=== PATIENT | female | born 1985 | race Two or more races ===

== ENCOUNTER 2021-05-30 02:40 | Emergency (ER) | payer SELFPAY ==
[~2021-05-30] VITALS: Ht 175.3 cm; Wt 127.0 kg
[2021-05-30] MEDS ORDERED: HYDROmorphone 2 MG/ML VIAL IVP ONE (04:00)
[2021-05-30] MEDS ORDERED: IV NORMAL SALINE 1000ML BAG 1,000 ML IV ONE (04:00)
[2021-05-30 04:16] LABS: BILIRUBIN,URINE NEGATIVE (NEG); CLARITY,URINE CLEAR; COLOR,URINE YELLOW; NITRITE,URINE NEGATIVE (NEG); PH,URINE 6.5 (<5.0-8.0); PROTEIN,URINE NEGATIVE (NEG-TRACE); UROBILINOGEN,URINE 0.2 mg/dL (0.2 mg/dL)
[2021-05-30 04:17] LABS: BASO # 0.1 x10^3/uL (0.0-0.2); BASO % 1 % (0-3); EOS % 0 % (0-3); HEMATOCRIT 36.6 % (36.0-47.0); HEMOGLOBIN 12.4 g/dL (12.0-15.5); LYMPH # 3.2 x10^3/uL (1.0-4.8); LYMPH % 19 % (24-48); MEAN CORPUSCULAR HEMOGLOBIN 27 pg (25-35); MEAN CORPUSCULAR HGB CONC 34 g/dL (31-37); MEAN CORPUSCULAR VOLUME 79 fL (79-100); MONO # 0.8 x10^3/uL (0.0-1.1); MONO % 5 % (0-9); NEUT # 12.6 x10^3/uL (1.8-7.7); NEUT % 75 % (31-73); PLATELET COUNT 404 x10^3/uL (140-400); RED BLOOD COUNT 4.65 x10^6/uL (3.50-5.40); WHITE BLOOD COUNT 16.8 x10^3/uL (4.0-11.0)
[2021-05-30 04:24] LABS: BACTERIA,URINE 0 /HPF (0-FEW); RBC,URINE 0 /HPF (0-2); WBC,URINE RARE /HPF (0-4)
[2021-05-30 04:25] LABS: CALCIUM 9.5 mg/dL (8.5-10.1); GFR 62.4; POTASSIUM 3.4 mmol/L (3.5-5.1)
[2021-05-30 04:31] LABS: ALBUMIN 3.6 g/dL (3.4-5.0); ALBUMIN/GLOBULIN RATIO 0.8 (1.0-1.7); TOTAL BILIRUBIN 0.5 mg/dL (0.2-1.0); TOTAL PROTEIN 8.2 g/dL (6.4-8.2)
--- NOTE | 2021-05-30 04:35 | PHYS DOC ---
Past Medical History Past Surgical History: No Surgical History (JENIFER COOLEY DO) Smoking Status: Never Smoker Alcohol Use: Occasionally (JENIFER COOLEY DO) General Adult EDM: Chief Complaint: ABDOMINAL PAIN HPI: HPI: 36-year-old female past medical history of [id number] diabetes presents the ED with , (patient consents to his/her/their knowledge and involvement in pts' medical care), complaints of left inguinal/pelvic pain that is sharp in nature stating " it is radiating right into my butt hole," since Friday. Patient reports no menses for 6 months and was given 7 days of Provera by her [facility] in [place]. This caused a heavy menses that stopped 1 week ago. Left inguinal pain started 4 days after this. Patient was seen at [facility] urgent care on Friday where she had a CT and an ultrasound "for torsion" and was diagnosed with uterine fibroids. Patient states "those medications they gave me aren't for pain," and has prescription bottles of Zofran and Bentyl at bedside. Patient is convinced she is constipated and states she has not had a bowel movement since Friday. Reports she normally has balance 2-3 times a day and has not been diagnosed with any GI disease. Last menstrual period was 05/15. (JENIFER COOLEY DO) Review of Systems: Review of Systems: Constitutional: Denies fever or chills. [] Eyes: Denies change in visual acuity. [] HENT: Denies nasal congestion or sore throat. [] Respiratory: Denies cough or shortness of breath. [] Cardiovascular: Denies chest pain or edema. [] GI: Denies nausea, vomiting, bloody stools or diarrhea. [] : Denies dysuria, hematuria, vaginal pain or abnormal vaginal discharge Musculoskeletal: Denies back pain or joint pain. [] Integument: Denies rash or diaphoresis Neurologic: Denies headache, focal weakness or sensory changes. [] Endocrine: Denies polyuria or polydipsia. [] Lymphatic: Denies swollen glands. [] Psychiatric: Denies depression or anxiety. [] (JENIFER COOLEY DO) Heart Score: C/O Chest Pain: No Risk Factors: Risk Factors: DM, Current or recent (<one month) smoker, HTN, HLP, family history of CAD, obesity. Risk Scores: Score 0 - 3: 2.5% MACE over next 6 weeks - Discharge Home Score 4 - 6: 20.3% MACE over next 6 weeks - Admit for Clinical Observation Score 7 - 10: 72.7% MACE over next 6 weeks - Early Invasive Strategies (JENIFER COOLEY DO) C/O Chest Pain: N/A (CARYN CHAVEZ DO) Current Medications: Current Medications Medications (Trade) Dose Ordered Sig/Savana Start Time Stop Time Status Last Admin Dose Admin Hydromorphone HCl (Dilaudid) 1 mg 1X ONCE 05/30/21 04:00 05/30/21 04:01 DC 05/30/21 04:14 1 MG Sodium Chloride 1,000 ml @ 1,000 mls/hr 1X ONCE 05/30/21 04:00 05/30/21 04:59 05/30/21 04:12 1,000 MLS/HR (JENIFER COOLEY DO) Allergies: Allergies: Allergies Coded Allergies Type Severity Reaction Last Updated Verified No Known Drug Allergies 05/30/21 No (JENIFER COOLEY DO) Physical Exam: PE: Constitutional: Crying, writhing in stretcher, nontoxic appearance HENT: Normocephalic, atraumatic, Eyes: EOMI, conjunctiva normal, no discharge. Neck: Normal range of motion, supple, Cardiovascular: S1/2 present, regular rhythm Lungs & Thorax: Speaking in full sentences, bilateral equal chest rise, no tachypnea or increased work of breathing Abdomen: soft, no tenderness, left lower pelvic pain and ttp Skin: Warm, dry, no erythema, no rash. [] Back: No tenderness, no CVA tenderness. [] Extremities: No tenderness, no cyanosis, Neurologic: Alert and oriented X 3, normal motor function, normal sensory function, no focal deficits noted. [] Psychologic: Affect normal, judgement normal, mood normal. [] (JENIFER COOLEY DO) Current Patient Data: Labs: Laboratory Tests Test 05/30/21 02:46 05/30/21 02:50 05/30/21 04:08 Urine Collection Type Void Urine Color Yellow Urine Clarity Clear Urine pH 6.5 (<5.0-8.0) Urine Specific [place] 1.020 (1.000-1.030) Urine Protein Negative mg/dL (NEG-TRACE) Urine Glucose (UA) Negative mg/dL (NEG) Urine Ketones (Stick) Negative mg/dL (NEG) Urine Blood Negative (NEG) Urine Nitrite Negative (NEG) Urine Bilirubin Negative (NEG) Urine Urobilinogen Dipstick 0.2 mg/dL (0.2 mg/dL) Urine Leukocyte Esterase Negative (NEG) Urine RBC 0 /HPF (0-2) Urine WBC Rare /HPF (0-4) Urine Squamous Epithelial Cells Mod /LPF Urine Bacteria 0 /HPF (0-FEW) Urine Mucus Slight /LPF POC Urine HCG, Qualitative Hcg negative (Negative) White Blood Count 16.8 x10^3/uL (4.0-11.0) H Red Blood Count 4.65 x10^6/uL (3.50-5.40) Hemoglobin 12.4 g/dL (12.0-15.5) Hematocrit 36.6 % (36.0-47.0) Mean Corpuscular Volume 79 fL (79-100) Mean Corpuscular Hemoglobin 27 pg (25-35) Mean Corpuscular Hemoglobin Concent 34 g/dL (31-37) Red Cell Distribution Width 16.0 % (11.5-14.5) H Platelet Count 404 x10^3/uL (140-400) H Neutrophils (%) (Auto) 75 % (31-73) H Lymphocytes (%) (Auto) 19 % (24-48) L Monocytes (%) (Auto) 5 % (0-9) Eosinophils (%) (Auto) 0 % (0-3) Basophils (%) (Auto) 1 % (0-3) Neutrophils # (Auto) 12.6 x10^3/uL (1.8-7.7) H Lymphocytes # (Auto) 3.2 x10^3/uL (1.0-4.8) Monocytes # (Auto) 0.8 x10^3/uL (0.0-1.1) Eosinophils # (Auto) 0.0 x10^3/uL (0.0-0.7) Basophils # (Auto) 0.1 x10^3/uL (0.0-0.2) Platelet Estimate Pending Sodium Level 139 mmol/L (136-145) Potassium Level 3.4 mmol/L (3.5-5.1) L Chloride Level 102 mmol/L (98-107) Carbon Dioxide Level 24 mmol/L (21-32) Anion Gap 13 (6-14) Blood Urea Nitrogen 13 mg/dL (7-20) Creatinine 1.0 mg/dL (0.6-1.0) Estimated GFR (Cockcroft-Gault) 62.4 BUN/Creatinine Ratio 13 (6-20) Glucose Level 146 mg/dL (70-99) H Calcium Level 9.5 mg/dL (8.5-10.1) Total Bilirubin 0.5 mg/dL (0.2-1.0) Aspartate Amino Transferase (AST) 13 U/L (15-37) L Alanine Aminotransferase (ALT) 20 U/L (14-59) Alkaline Phosphatase 121 U/L (46-116) H Total Protein 8.2 g/dL (6.4-8.2) Albumin 3.6 g/dL (3.4-5.0) Albumin/Globulin Ratio 0.8 (1.0-1.7) L Laboratory Tests 05/30/21 04:08 Laboratory Tests 05/30/21 04:08 Vital Signs: Vital Signs Date Time Temp Pulse Resp B/P (MAP) Pulse Ox O2 Delivery O2 Flow Rate FiO2 05/30/21 04:14 22 100 Room Air 05/30/21 03:00 98.2 87 146/76 98.2 ([facility]) Labs: Laboratory Tests Test 05/30/21 02:46 05/30/21 02:50 05/30/21 04:08 Urine Collection Type Void Urine Color Yellow Urine Clarity Clear Urine pH 6.5 Urine Specific [place] 1.020 Urine Protein Negative mg/dL Urine Glucose (UA) Negative mg/dL Urine Ketones (Stick) Negative mg/dL Urine Blood Negative Urine Nitrite Negative Urine Bilirubin Negative Urine Urobilinogen Dipstick 0.2 mg/dL Urine Leukocyte Esterase Negative Urine RBC 0 /HPF Urine WBC Rare /HPF Urine Squamous Epithelial Cells Mod /LPF Urine Bacteria 0 /HPF Urine Mucus Slight /LPF Bedside Urine HCG, Qualitative Hcg negative White Blood Count 16.8 x10^3/uL Red Blood Count 4.65 x10^6/uL Hemoglobin 12.4 g/dL Hematocrit 36.6 % Mean Corpuscular Volume 79 fL Mean Corpuscular Hemoglobin 27 pg Mean Corpuscular Hemoglobin Concent 34 g/dL Red Cell Distribution Width 16.0 % Platelet Count 404 x10^3/uL Neutrophils (%) (Auto) 75 % Lymphocytes (%) (Auto) 19 % Monocytes (%) (Auto) 5 % Eosinophils (%) (Auto) 0 % Basophils (%) (Auto) 1 % Neutrophils # (Auto) 12.6 x10^3/uL Lymphocytes # (Auto) 3.2 x10^3/uL Monocytes # (Auto) 0.8 x10^3/uL Eosinophils # (Auto) 0.0 x10^3/uL Basophils # (Auto) 0.1 x10^3/uL Segmented Neutrophils % 72 % Lymphocytes % 24 % Monocytes % 4 % Platelet Estimate Adequate Sodium Level 139 mmol/L Potassium Level 3.4 mmol/L Chloride Level 102 mmol/L Carbon Dioxide Level 24 mmol/L Anion Gap 13 Blood Urea Nitrogen 13 mg/dL Creatinine 1.0 mg/dL Estimated GFR (Cockcroft-Gault) 62.4 BUN/Creatinine Ratio 13 Glucose Level 146 mg/dL Lactic Acid Level 2.1 mmol/L Calcium Level 9.5 mg/dL Total Bilirubin 0.5 mg/dL Aspartate Amino Transf (AST/SGOT) 13 U/L Alanine Aminotransferase (ALT/SGPT) 20 U/L Alkaline Phosphatase 121 U/L Total Protein 8.2 g/dL Albumin 3.6 g/dL Albumin/Globulin Ratio 0.8 Current Medications Medications (Trade) Dose Ordered Sig/Savana Route PRN Reason Start Time Stop Time Status Last Admin Dose Admin Hydromorphone HCl (Dilaudid) 1 mg 1X ONCE IVP 05/30/21 04:00 05/30/21 04:01 DC 05/30/21 04:14 Sodium Chloride 1,000 ml @ 1,000 mls/hr 1X ONCE IV 05/30/21 04:00 05/30/21 04:59 DC 05/30/21 04:12 Iohexol (Omnipaque 300 Mg/ml) 75 ml 1X ONCE IV 05/30/21 04:45 05/30/21 04:46 DC 05/30/21 05:30 Info (CONTRAST GIVEN -- Rx MONITORING) 1 each PRN DAILY PRN MC SEE COMMENTS 05/30/21 04:45 06/01/21 04:44 Ketorolac Tromethamine (Toradol 30mg Vial) 30 mg 1X ONCE IVP 05/30/21 07:00 05/30/21 07:01 DC 05/30/21 07:05 (CARYN CHAVEZ DO) EKG: EKG: [] (JENIFER COOLEY DO) Radiology/Procedures: Radiology/Procedures: [] (JENIFER COOLEY DO) Radiology/Procedures: [facility] [address] [place] [address] IMAGING REPORT Signed PATIENT: HECTOR BAUGH ACCOUNT: [id number] : 1985 LOCATION: ER AGE: 36 SEX: F EXAM STATUS: REG ER ORD. PHYSICIAN: JENIFER COOLEY DO REASON: left pelvic pain;OMNI 300, 75ML PROCEDURE: CT ABD PELV W/ IV CONTRST ONLY CT abdomen and pelvis with contrast: Reason for examination: Left-sided pelvic pain. Helical images were obtained through the abdomen pelvis with intravenous administration of 75 cc Omnipaque 300. Reconstruction was performed in sagittal and coronal planes. Exposure: One or more of the following individualized dose reduction techniques were utilized for this examination: 1. Automated exposure control 2. Adjustment of the mA and/or kV according to patient size 3. Use of iterative re construction technique. The lung bases are clear. The heart size is normal with no pericardial effusion. No abnormality seen at the liver, spleen, adrenal glands or pancreas. The gallbladder is surgically absent. The abdominal aorta and inferior vena cava show no acute abnormalities. No abnormality seen at the appendix. The colon shows no diverticulosis, diverticulitis or evidence of colitis. The small intestinal tract shows no abnormal dilatation, wall thickening or obstruction. No abnormality seen at the stomach or duodenum. The kidneys show a small 1 cm cyst at the midpole of the left kidney. No renal calculi, hydronephrosis or obstructive uropathy is evident. The bladder is not distended. Uterus shows a hypodense lesion posteriorly in the fundus which probably represents a fibroid measuring approximately 4.4 cm in size. There appear to be nabothian cysts in the cervix. No free fluid or free air seen in the abdomen or pelvis. No acute bony abnormalities are seen. IMPRESSION: 1.0 cm cyst at the midpole of the left kidney. Nabothian cysts in the cervix. 4.4 cm hypodense mass in the uterine fundus posteriorly probably representing a fibroid. Electronically signed by: Emy Cm MD (05/30/2021 6:15 AM) [place] DICTATED and SIGNED BY: EMY CM MD DATE: 05/30/21 [id number] [facility] [address] [place] [address] IMAGING REPORT Signed PATIENT: HECTOR BAUGH ACCOUNT: [id number] : 1985 LOCATION: ER AGE: 36 SEX: F EXAM STATUS: REG ER ORD. PHYSICIAN: JENIFER COOLEY DO REASON: left pelvic pain, r/o torsion PROCEDURE: TRANSVAGINAL Pelvic ultrasound, transabdominal and transvaginal: Reason for examination: Left pelvic pain and constipation. Transabdominal and transvaginal ultrasound examination of the pelvis was perfor med. Uterus measures 9.2 x 6.3 x 6.3 cm greatest dimension and shows no focal mass. Endometrium is not abnormally thickened at 6.5 mm. Nabothian cysts are seen in the cervix. There is a 5.5 x 3.7 x 3.1 cm mass in the uterus probably representing a fibroid. Left ovary measures 3.1 x 2.1 x 2.1 cm in greatest dimension and shows normal vascular flow and no mass. The right ovary was not visualized transvaginally. The right ovary transabdominally appears to measure 2.7 x 2.0 x 1.9 cm in size and contains a 1.6 cm follicle. IMPRESSION: 5.5 x 3.7 x 3.1 cm mass in the uterus which probably represents a fibroid. Nabothian cysts. 1.6 cm follicle in the right ovary. Electronically signed by: Emy Cm MD (05/30/2021 5:47 AM) [facility] DICTATED and SIGNED BY: EYM CM MD DATE: 05/30/21 [id number] (CARYN CHAVEZ DO) Course & Med Decision Making: Course & Med Decision Making Pertinent Labs and Imaging studies reviewed. (See chart for details) Due to shift change patient was pending radiologic results. Patient's labs and u/a unremarkable. Patient was signed out to oncoming physician Dr. Chavez for further medical evaluation and disposition. (JENIFER COOLEY DO) Course & Med Decision Making Patient is a 36-year-old female who present to ER due to lower abdominal pain, CT scan of abdomen pelvis with ultrasound shows a fibroid, no other acute problem. Patient will be discharged home with pain medication. 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 Patient is currently on control medication. (CARYN CHAVEZ DO) Dragon Disclaimer: Dragon Disclaimer: This electronic medical record was generated, in whole or in part, using a voice recognition dictation system. (JENIFER COOLEY DO) Departure Departure Impression: Primary Impression: Lower abdominal pain Additional Impression: Fibroid Disposition: HOME / SELF CARE / HOMELESS Condition: STABLE Referrals: NO PCP (PCP) Patient Instructions: Abdominal Pain, Fibroids, [id number] Additional Instructions: Thank you for visiting our Emergency Department. We appreciate you trusting us with your care. If any additional problems come up don't hesitate to return to visit us. Please follow up with your primary care provider so they can plan additional care if needed and know about the problem that you had. If symptoms worsen come back to the Emergency Department. Any concerning symptoms that start such as chest pain, shortness of air, weakness or numbness on one side of the body, running high fevers or any other concerning symptoms return to the ER. Scripts Ibuprofen (IBUPROFEN) 800 Mg Tablet 800 MG PO PRN Q8HRS PRN for PAIN, #30 TAB Prov: CARYN CHAVEZ DO 05/30/21 Tramadol Hcl (TRAMADOL HCL) 50 Mg Tablet 50 MG PO Q6HRS PRN for PAIN, #20 TAB Prov: CARYN CHAVEZ DO 05/30/21 JENIFER COOLEY DO May 30, 2021 04:35 CARYN CHAVEZ DO May 30, 2021 07:46
[2021-05-30 04:41] LABS: % LYMPHS 24 % (24-48); % MONOS 4 % (0-10); % SEGS 72 % (35-66); PLT ESTIMATE ADEQUATE (ADEQUATE)
[2021-05-30] MEDS ORDERED: IOHEXOL 300 MG/ML 100ML VIAL. IV ONE (04:45)
[2021-05-30] MEDS ORDERED: CONTRAST GIVEN. MC PRN (04:45)
--- NOTE | 2021-05-30 05:50 | RAD ---
Pelvic ultrasound, transabdominal and transvaginal: Reason for examination: Left pelvic pain and constipation. Transabdominal and transvaginal ultrasound examination of the pelvis was performed. Uterus measures 9.2 x 6.3 x 6.3 cm greatest dimension and shows no focal mass. Endometrium is not abn ormally thickened at 6.5 mm. Nabothian cysts are seen in the cervix. There is a 5.5 x 3.7 x 3.1 cm ma ss in the uterus probably representing a fibroid. Left ovary measures 3.1 x 2.1 x 2.1 cm in greatest dimension and shows normal vascular flow and no ma ss. The right ovary was not visualized transvaginally. The right ovary transabdominally appears to measur e 2.7 x 2.0 x 1.9 cm in size and contains a 1.6 cm follicle. IMPRESSION: 5.5 x 3.7 x 3.1 cm mass in the uterus which probably represents a fibroid. Nabothian cysts. 1.6 cm follicle in the right ovary. Electronically signed by: Tosin Mccoy MD (05/30/2021 5:47 AM) [facility]
--- NOTE | 2021-05-30 06:18 | RAD ---
CT abdomen and pelvis with contrast: Reason for examination: Left-sided pelvic pain. Helical images were obtained through the abdomen pelvis with intravenous administration of 75 cc Omni paque 300. Reconstruction was performed in sagittal and coronal planes. Exposure: One or more of the following individualized dose reduction techniques were utilized for thi s examination: 1. Automated exposure control 2. Adjustment of the mA and/or kV according to patient size 3. Use of iterative reconstruction technique. The lung bases are clear. The heart size is normal with no pericardial effusion. No abnormality seen at the liver, spleen, adrenal glands or pancreas. The gallbladder is surgically a bsent. The abdominal aorta and inferior vena cava show no acute abnormalities. No abnormality seen at the appendix. The colon shows no diverticulosis, diverticulitis or evidence of colitis. The small in testinal tract shows no abnormal dilatation, wall thickening or obstruction. No abnormality seen at t he stomach or duodenum. The kidneys show a small 1 cm cyst at the midpole of the left kidney. No yocasta l calculi, hydronephrosis or obstructive uropathy is evident. The bladder is not distended. Uterus shows a hypodense lesion posteriorly in the fundus which probabl y represents a fibroid measuring approximately 4.4 cm in size. There appear to be nabothian cysts in the cervix. No free fluid or free air seen in the abdomen or pelvis. No acute bony abnormalities are seen. IMPRESSION: 1.0 cm cyst at the midpole of the left kidney. Nabothian cysts in the cervix. 4.4 cm hypodense mass in the uterine fundus posteriorly probably representing a fibroid. Electronically signed by: Tosin Mccoy MD (05/30/2021 6:15 AM) [facility]
[2021-05-30] MEDS ORDERED: KETOROLAC 30 MG/ML VIAL. IVP ONE (07:00)
--- NOTE | 2021-05-30 07:28 | RAD ---
Acute abdominal series with PA chest: Reason for examination: Constipation. The heart size is normal. Mediastinum is unremarkable. Lung abreu are clear. No acute bony abnormali ties are seen in the thorax. In the abdomen, there is no organomegaly. Psoas muscles are symmetric. Bowel gas pattern is nonspecif ic and nonobstructive. No abnormal calcifications are seen. There are surgical clips are previous cho lecystectomy. No acute bony abnormalities are seen. IMPRESSION: No acute cardiopulmonary disease. Nonspecific nonobstructive bowel gas pattern. Electronically signed by: Tosin Mccoy MD (05/30/2021 7:26 AM) [facility]
[2021-05-30 07:40] VITALS: BP 150/67
[2021-05-30] MEDS ORDERED: IBUP-1060 PO (07:54)
[2021-05-30] MEDS ORDERED: TRAM50TA PO (07:54)
== END 2021-05-30 08:13 | disposition home or self-care (01) ==
LOC: ER 02:40
DX: D25.9 Leiomyoma of uterus, unspecified (principal)
CPT/HCPCS: 36415; 74022; 74177; 76830; 80053; 81001; 81025; 83605; 85007; 85025; 96361; 96374; 96375; 99285; J1170; J1885; J7030; Q9967

== ENCOUNTER 2021-11-04 05:29 | Emergency (ER) | payer SELFPAY ==
[~2021-11-04] VITALS: Ht 176.5 cm; Wt 118.2 kg
[~2021-11-04 05:29] MED LIST: IBUP-1060 PO; TRAM50TA PO
--- NOTE | 2021-11-04 06:09 | PHYS DOC ---
Past Medical History Past Surgical History: No Surgical History Smoking Status: Never Smoker Alcohol Use: Occasionally Adult General Chief Complaint Chief Complaint: ABDOMINAL PAIN HPI HPI Patient is a 36 year old female presenting to the emergency department for evaluation of multiple complaints including abdominal pain dysuria vaginal bl eeding vaginal discharge diarrhea that all started yesterday. She says that the abdominal pain is diffuse bilateral lower quadrant crampy and radiates towards her left flank. She denies fevers chills nausea or vomiting says she has had watery stool since yesterday but had no blood. Patient says that she has painful urination and she is currently on her menstrual cycle and she is having vaginal bleeding and vaginal discharge. She says she took ibuprofen for the pain with no relief. She reports getting a colonoscopy in May when she had severe pain like this and was diagnosed with diverticulitis. She denies prior abdominal surgeries. She appears uncomfortable but is nontoxic. Review of Systems Review of Systems Constitutional: Denies fever or chills [] Eyes: Denies change in visual acuity, redness, or eye pain [] HENT: Denies nasal congestion or sore throat [] Respiratory: Denies cough or shortness of breath [] Cardiovascular: No additional information not addressed in HPI [] GI: + abdominal pain. No nausea, vomiting, bloody stools. + diarrhea [] : Denies dysuria or hematuria [] Musculoskeletal: + back pain. No joint pain [] Integument: Denies rash or skin lesions [] Neurologic: Denies headache, focal weakness or sensory changes [] Endocrine: Denies polyuria or polydipsia [] All other systems were reviewed and found to be within normal limits, except as documented in this note. Current Medications Current Medications Current Medications Medications (Trade) Dose Ordered Sig/[facility] Start Time Stop Time Status Last Admin Dose Admin Hydromorphone HCl (Dilaudid) 1 mg 1X ONCE 11/04/21 07:00 11/04/21 07:01 DC 11/04/21 07:28 1 MG Info (CONTRAST GIVEN -- Rx MONITORING) 1 each PRN DAILY PRN 11/04/21 06:30 11/06/21 06:29 Iohexol (Omnipaque 300 Mg/ml) 75 ml 1X ONCE 11/04/21 07:00 11/04/21 07:01 DC 11/04/21 06:55 75 ML Ketorolac Tromethamine (Toradol 15mg Vial) 15 mg 1X ONCE 11/04/21 07:00 11/04/21 07:01 DC 11/04/21 06:19 15 MG Morphine Sulfate (Morphine Sulfate) 4 mg 1X ONCE 11/04/21 07:00 11/04/21 07:01 DC 11/04/21 06:20 4 MG Ondansetron HCl (Zofran) 4 mg 1X ONCE 11/04/21 07:00 11/04/21 07:01 DC 11/04/21 06:20 4 MG Sodium Chloride 1,000 ml @ 1,000 mls/hr 1X ONCE 11/04/21 07:00 11/04/21 07:59 11/04/21 06:21 1,000 MLS/HR Allergies Allergies Allergies Coded Allergies Type Severity Reaction Last Updated Verified No Known Drug Allergies 05/30/21 No Physical Exam Physical Exam Constitutional: Well developed, well nourished, no acute distress, non-toxic appearance. [] HENT: Normocephalic, atraumatic, bilateral external ears normal, oropharynx moist, no oral exudates, nose normal. [] Eyes: PERRLA, EOMI, conjunctiva normal, no discharge. [] Neck: Normal range of motion, no tenderness, supple, no stridor. [] Cardiovascular:Heart rate regular rhythm, no murmur [] Lungs & Thorax: Bilateral breath sounds clear to auscultation [] Abdomen: Bowel sounds normal, soft, bilateral lower abdominal tenderness to palpation with no rebound or guarding. Skin: Warm, dry, no erythema, no rash. [] Back: No tenderness, no CVA tenderness. [] Extremities: No tenderness, no cyanosis, no clubbing, ROM intact, no edema. [] Neurologic: Alert and oriented X 3, normal motor function, normal sensory function, no focal deficits noted. [] Current Patient Data Vital Signs Vital Signs Date Time Temp Pulse Resp B/P (MAP) Pulse Ox O2 Delivery O2 Flow Rate FiO2 11/04/21 07:28 16 98 Room Air 11/04/21 06:32 74 159/74 (102) 11/04/21 06:00 97.7 97.7 Lab Values Laboratory Tests Test 11/04/21 05:59 11/04/21 06:00 11/04/21 06:14 POC Urine HCG, Qualitative Hcg negative (Negative) Urine Collection Type Unknown Urine Color Yellow Urine Clarity Clear Urine pH 6.0 (<5.0-8.0) Urine Specific [place] 1.010 (1.000-1.030) Urine Protein Negative mg/dL (NEG-TRACE) Urine Glucose (UA) Negative mg/dL (NEG) Urine Ketones (Stick) 15 mg/dL (NEG) Urine Blood Large (NEG) Urine Nitrite Negative (NEG) Urine Bilirubin Negative (NEG) Urine Urobilinogen Dipstick 0.2 mg/dL (0.2 mg/dL) Urine Leukocyte Esterase Negative (NEG) Urine RBC 6-10 /HPF (0-2) Urine WBC 0 /HPF (0-4) Urine Squamous Epithelial Cells Few /LPF Urine Bacteria 0 /HPF (0-FEW) Urine Mucus Slight /LPF White Blood Count 10.5 x10^3/uL (4.0-11.0) Red Blood Count 4.64 x10^6/uL (3.50-5.40) Hemoglobin 12.2 g/dL (12.0-15.5) Hematocrit 36.7 % (36.0-47.0) Mean Corpuscular Volume 79 fL (79-100) Mean Corpuscular Hemoglobin 26 pg (25-35) Mean Corpuscular Hemoglobin Concent 33 g/dL (31-37) Red Cell Distribution Width 16.3 % (11.5-14.5) H Platelet Count 336 x10^3/uL (140-400) Neutrophils (%) (Auto) 78 % (31-73) H Lymphocytes (%) (Auto) 16 % (24-48) L Monocytes (%) (Auto) 5 % (0-9) Eosinophils (%) (Auto) 0 % (0-3) Basophils (%) (Auto) 1 % (0-3) Neutrophils # (Auto) 8.1 x10^3/uL (1.8-7.7) H Lymphocytes # (Auto) 1.7 x10^3/uL (1.0-4.8) Monocytes # (Auto) 0.5 x10^3/uL (0.0-1.1) Eosinophils # (Auto) 0.0 x10^3/uL (0.0-0.7) Basophils # (Auto) 0.1 x10^3/uL (0.0-0.2) Sodium Level 139 mmol/L (136-145) Potassium Level 3.2 mmol/L (3.5-5.1) L Chloride Level 104 mmol/L (98-107) Carbon Dioxide Level 23 mmol/L (21-32) Anion Gap 12 (6-14) Blood Urea Nitrogen 8 mg/dL (7-20) Creatinine 0.7 mg/dL (0.6-1.0) Estimated GFR (Cockcroft-Gault) 94.2 BUN/Creatinine Ratio 11 (6-20) Glucose Level 146 mg/dL (70-99) H Calcium Level 8.7 mg/dL (8.5-10.1) Total Bilirubin 0.4 mg/dL (0.2-1.0) Aspartate Amino Transferase (AST) 19 U/L (15-37) Alanine Aminotransferase (ALT) 17 U/L (14-59) Alkaline Phosphatase 79 U/L (46-116) Total Protein 8.5 g/dL (6.4-8.2) H Albumin 3.5 g/dL (3.4-5.0) Albumin/Globulin Ratio 0.7 (1.0-1.7) L Lipase 54 U/L (73-393) L Laboratory Tests 11/04/21 06:14 Laboratory Tests 11/04/21 06:14 EKG EKG [] Radiology/Procedures Radiology/Procedures [] Course & Med Decision Making Course & Med Decision Making Patient has multiple symptoms along with her nonspecific bilateral lower abdominal pains will check labs imaging treat symptoms and reassess. Patient's labs are unremarkable however I discussed insulin findings including mild hypokalemia. Potassium was given here. Patient's pain improved significantly with treatment in the emergency department and her repeat abdominal exam was benign and her vital signs are normal. There is no signs of surgical pathology on her CT scan but I did discuss insulin findings of uterine fibroids and told that could be causing her increased bleeding and pain and that she should follow with her washer carcass as she may benefit from medical or surgical treatment for her uterine fibroids. Given patient appears well with n ormal vital signs benign physical exam and work-up I will discharge her in stable condition prescribe her supportive medications told to follow with her washer carcass within 2 to 3 days for recheck and come back to emergency department sooner with worsening pain fevers vomiting or other general concerns. Patient aware and agreeable with plan and verbalized understanding of the above instructions. Dragon Disclaimer Dragon Disclaimer This electronic medical record was generated, in whole or in part, using a voice recognition dictation system. Departure Departure Impression: Primary Impression: Uterine fibroid Additional Impressions: Abdominal pain Dysuria Diarrhea Disposition: HOME / SELF CARE / HOMELESS Condition: IMPROVED Referrals: NO PCP (PCP) Patient Instructions: Uterine Fibroid, [id number] Additional Instructions: Take 600mg of ibuprofen every 6 hours for pain and the norco for breakthrough pain. Follow with your FIRE EXTINGUISHER INSPECTOR as soon as you can and come back to the ED with any new or worsening symptoms. Thank you! Scripts Hydrocodone Bit/Acetaminophen (HYDROCODONE-APAP 5-325 ) 1 Tab Tablet 1 TAB PO PRN Q6HRS PRN for PAIN, #14 TAB 0 Refills Prov: CRAIG ESCALANTE DO 11/04/21 Phenazopyridine Hcl (PYRIDIUM) 200 Mg Tablet 1 TAB PO TID for urinary discomfort for 2 Days, #6 TAB 0 Refills Prov: CRAIG ESCALANTE DO 11/04/21 Problem Qualifiers Primary Impression: Uterine fibroid Uterine leiomyoma location: unspecified location Qualified Codes: D25.9 - Leiomyoma of uterus, unspecified Additional Impressions: Abdominal pain Abdominal location: lower abdomen, unspecified Qualified Codes: R10.30 - Lower abdominal pain, unspecified CRAIG ESCALANTE DO Nov 04, 2021 06:09
[2021-11-04 06:25] LABS: BASO # 0.1 x10^3/uL (0.0-0.2); BASO % 1 % (0-3); EOS % 0 % (0-3); HEMATOCRIT 36.7 % (36.0-47.0); HEMOGLOBIN 12.2 g/dL (12.0-15.5); LYMPH # 1.7 x10^3/uL (1.0-4.8); LYMPH % 16 % (24-48); MEAN CORPUSCULAR HEMOGLOBIN 26 pg (25-35); MEAN CORPUSCULAR HGB CONC 33 g/dL (31-37); MEAN CORPUSCULAR VOLUME 79 fL (79-100); MONO # 0.5 x10^3/uL (0.0-1.1); MONO % 5 % (0-9); NEUT # 8.1 x10^3/uL (1.8-7.7); NEUT % 78 % (31-73); PLATELET COUNT 336 x10^3/uL (140-400); RED BLOOD COUNT 4.64 x10^6/uL (3.50-5.40); RED CELL DISTRIBUTION WIDTH 16.3 % (11.5-14.5); WHITE BLOOD COUNT 10.5 x10^3/uL (4.0-11.0)
[2021-11-04] MEDS ORDERED: CONTRAST GIVEN. MC PRN (06:30)
[2021-11-04 06:38] LABS: CALCIUM 8.7 mg/dL (8.5-10.1); CREATININE 0.7 mg/dL (0.6-1.0); GFR 94.2; POTASSIUM 3.2 mmol/L (3.5-5.1)
[2021-11-04 06:45] LABS: ALBUMIN 3.5 g/dL (3.4-5.0); ALBUMIN/GLOBULIN RATIO 0.7 (1.0-1.7); TOTAL BILIRUBIN 0.4 mg/dL (0.2-1.0); TOTAL PROTEIN 8.5 g/dL (6.4-8.2)
[2021-11-04 06:47] LABS: BILIRUBIN,URINE NEGATIVE (NEG); CLARITY,URINE CLEAR; COLOR,URINE YELLOW; NITRITE,URINE NEGATIVE (NEG); PROTEIN,URINE NEGATIVE (NEG-TRACE); UROBILINOGEN,URINE 0.2 mg/dL (0.2 mg/dL)
[2021-11-04 06:56] LABS: BACTERIA,URINE 0 /HPF (0-FEW); WBC,URINE 0 /HPF (0-4)
[2021-11-04] MEDS ORDERED: MORPHINE SULFATE 4 MG/ML INJ. IV ONE (07:00)
[2021-11-04] MEDS ORDERED: ONDANSETRON PF 4 MG/2 ML VIAL. IVP ONE (07:00)
[2021-11-04] MEDS ORDERED: HYDROmorphone 2 MG/ML INJ. IVP ONE (07:00)
[2021-11-04] MEDS ORDERED: IOHEXOL 300 MG/ML 100ML VIAL. IV ONE (07:00)
[2021-11-04] MEDS ORDERED: KETOROLAC 15 MG/ML VIAL. IVP ONE (07:00)
[2021-11-04] MEDS ORDERED: IV NORMAL SALINE 1000ML BAG 1,000 ML IV ONE (07:00)
--- NOTE | 2021-11-04 07:32 | RAD ---
CT STUDY OF THE ABDOMEN AND PELVIS WITH CONTRAST Clinical indications: Diffuse lower abdominal pain for one day. TECHNIQUE: After IV infusion of 75 cc of Omnipaque 300, helical CT scanning of the abdomen and pelvis was performed. GI contrast was not administered. This may decrease the sensitivity to detect GI trac t pathology. PQRS COMPLIANCE STATEMENT One or more of the following individualized dose reduction techniques were utilized for this study: 1. Automated exposure control 2. Adjustment of the mA and/or kV according to patient size 3. Use of iterative reconstruction technique COMPARISON: May 30, 2021. FINDINGS: The liver and spleen and pancreas are normal. The gallbladder is surgically absent. No extr ahepatic biliary ductal dilatation is seen. No adrenal mass is evident. Both kidneys are normal witho ut hydronephrosis or hydroureter. No urinary tract stone is evident. Urinary bladder wall is smooth. No focal aneurysmal dilatation of the abdominal aorta is seen. No enlarged abdominal or pelvic lympha denopathy is evident. There is mild fecal retention within the right side of the colon. The appendix and terminal ileum are normal. No obstructive bowel pattern is evident. No free air or free fluid or mesenteric edema is seen. There is a posterior uterine mass measuring 6 cm in greatest vertical dimen devante. This is consistent with a uterine fibroid and has increased in size to from the prior study. Th ere is another hypodense mass of the lower uterine segment measuring 3.9 cm in greatest vertical dime nsion. This is unchanged in size and is consistent with another uterine fibroid. There is smaller hyp odense area involving the anterior lower aspect of the uterine body measuring 1.6 cm in size consiste nt with a uterine fibroid. No dominant ovarian cyst or mass is seen. No free fluid is seen within the cul-de-sac. No lung base consolidation is evident. No lytic process is seen. IMPRESSION: No acute abnormality of the abdomen or pelvis. 3 uterine fibroids. Electronically signed by: Yogi Alexander MD (11/04/2021 7:29 AM) [id number]
[2021-11-04] MEDS ORDERED: POTASSIUM CHLORIDE 20 MEQ TABLET.ER. PO ONE (07:45)
[2021-11-04] MEDS ORDERED: HYDR-2761 PO (07:47)
[2021-11-04] MEDS ORDERED: PHEN-318 PO (07:47)
[2021-11-04 07:57] VITALS: BP 133/70
== END 2021-11-04 08:04 | disposition home or self-care (01) ==
LOC: ER 06:38
DX: D25.9 Leiomyoma of uterus, unspecified (principal); R30.0 Dysuria; R19.7 Diarrhea, unspecified
CPT/HCPCS: 36415; 74177; 80053; 81001; 81025; 83690; 85025; 96361; 96374; 96375; 99285; J1170; J1885; J2270; J2405; J7030; Q9967

== ENCOUNTER 2021-11-16 16:47 | Emergency (ER) | payer SELFPAY ==
[~2021-11-16] VITALS: Ht 175.3 cm; Wt 113.6 kg
[~2021-11-16 16:47] MED LIST changes: +HYDR-2761 PO; +PHEN-318 PO
--- NOTE | 2021-11-16 17:48 | PHYS DOC ---
Past Medical History Past Medical History: Diverticulosis, Uterine Fibroids Past Surgical History: Cholecystectomy Smoking Status: Never Smoker Alcohol Use: None General Adult EDM: Chief Complaint: ABDOMINAL PAIN HPI: HPI: Patient is a 36-year-old female that presents today with lower abdominal pain. Patient states she has had lower abdominal pain since Friday and over the course of the last 4 to 5 days it has gotten progressively worse. Patient states that also with the abdominal pain she has had bouts of diarrhea and constipation with this, she is also has some nausea vomiting the last 24 to 48 hours with this abdominal pain. Patient states that she was here on November 04, 2021 and was seen for lower abdominal pain and is told that she had fibroids, she states that she saw her primary care physician last week and they took her off her oral control and decided to do an implant to see if that would help with her abdominal cramping. Patient today does denies dysuria, frequency in urination, vaginal bleeding or vaginal discharge. Review of Systems: Review of Systems: Constitutional: Denies fever or chills. [] Eyes: Denies change in visual acuity. [] HENT: Denies nasal congestion or sore throat. [] Respiratory: Denies cough or shortness of breath. [] Cardiovascular: Denies chest pain or edema. [] GI: abdominal pain, nausea, vomiting, diarrhea. [] : Denies dysuria or urinary frequency, denies vaginal bleeding vaginal discharge Musculoskeletal: Denies back pain or joint pain. [] Integument: Denies rash. [] Neurologic: Denies headache, focal weakness or sensory changes. [] Endocrine: Denies polyuria or polydipsia. [] Lymphatic: Denies swollen glands. [] Psychiatric: Denies depression or anxiety. [] Heart Score: C/O Chest Pain: N/A Risk Factors: Risk Factors: DM, Current or recent (<one month) smoker, HTN, HLP, family history of CAD, obesity. Risk Scores: Score 0 - 3: 2.5% MACE over next 6 weeks - Discharge Home Score 4 - 6: 20.3% MACE over next 6 weeks - Admit for Clinical Observation Score 7 - 10: 72.7% MACE over next 6 weeks - Early Invasive Strategies Allergies: Allergies: Allergies Coded Allergies Type Severity Reaction Last Updated Verified No Known Drug Allergies 05/30/21 No Physical Exam: PE: Constitutional: Well developed, well nourished, mild distress, non-toxic appearance. [] HENT: Normocephalic, atraumatic, bilateral external ears normal, oropharynx moist, no oral exudates, nose normal. [] Eyes: PERRLA, EOMI, conjunctiva normal, no discharge. [] Neck: Normal range of motion, no tenderness, supple, no stridor. [] Cardiovascular:Heart rate regular rhythm, no murmur [] Lungs & Thorax: Bilateral breath sounds clear to auscultation [] Abdomen: Round abdomen soft, tenderness in the lower abdomen area, bowel sounds are hypoactive, no masses no hernias noted Skin: Warm, dry, no erythema, no rash. [] Back: No tenderness, no CVA tenderness. [] Extremities: No tenderness, no cyanosis, no clubbing, ROM intact, no edema. [] Neurologic: Alert and oriented X 3, normal motor function, normal sensory function, no focal deficits noted. [] Psychologic: Affect normal, judgement normal, mood anxious. [] Current Patient Data: Labs: Laboratory Tests Test 11/16/21 17:34 11/16/21 17:41 11/16/21 18:11 Urine Collection Type Unknown Urine Color Yellow Urine Clarity Clear Urine pH 6.5 Urine Specific [place] 1.010 Urine Protein Negative mg/dL Urine Glucose (UA) Negative mg/dL Urine Ketones (Stick) 80 mg/dL Urine Blood Negative Urine Nitrite Negative Urine Bilirubin Negative Urine Urobilinogen Dipstick 0.2 mg/dL Urine Leukocyte Esterase Negative Urine RBC 0 /HPF Urine WBC Occ /HPF Urine Squamous Epithelial Cells Mod /LPF Urine Bacteria 0 /HPF Urine Mucus Slight /LPF Bedside Urine HCG, Qualitative Hcg negative White Blood Count 15.1 x10^3/uL Red Blood Count 4.96 x10^6/uL Hemoglobin 12.7 g/dL Hematocrit 39.0 % Mean Corpuscular Volume 79 fL Mean Corpuscular Hemoglobin 26 pg Mean Corpuscular Hemoglobin Concent 33 g/dL Red Cell Distribution Width 16.5 % Platelet Count 402 x10^3/uL Neutrophils (%) (Auto) 73 % Lymphocytes (%) (Auto) 21 % Monocytes (%) (Auto) 5 % Eosinophils (%) (Auto) 0 % Basophils (%) (Auto) 1 % Neutrophils # (Auto) 11.0 x10^3/uL Lymphocytes # (Auto) 3.2 x10^3/uL Monocytes # (Auto) 0.8 x10^3/uL Eosinophils # (Auto) 0.0 x10^3/uL Basophils # (Auto) 0.1 x10^3/uL Sodium Level 142 mmol/L Potassium Level 3.5 mmol/L Chloride Level 103 mmol/L Carbon Dioxide Level 21 mmol/L Anion Gap 18 Blood Urea Nitrogen 11 mg/dL Creatinine 0.7 mg/dL Estimated GFR (Cockcroft-Gault) 94.2 BUN/Creatinine Ratio 16 Glucose Level 107 mg/dL Calcium Level 9.2 mg/dL Total Bilirubin 0.5 mg/dL Aspartate Amino Transf (AST/SGOT) 11 U/L Alanine Aminotransferase (ALT/SGPT) 23 U/L Alkaline Phosphatase 101 U/L Total Protein 8.6 g/dL Albumin 4.1 g/dL Albumin/Globulin Ratio 0.9 Lipase 62 U/L Current Medications Medications (Trade) Dose Ordered Sig/[place] Route PRN Reason Start Time Stop Time Status Last Admin Dose Admin Sodium Chloride 1,000 ml @ 999 mls/hr 1X ONCE IV 11/16/21 18:00 11/16/21 19:00 DC 11/16/21 17:57 Ketorolac Tromethamine (Toradol 30mg Vial) 30 mg 1X ONCE IVP 11/16/21 18:00 11/16/21 18:01 DC 11/16/21 17:58 Ondansetron HCl (Zofran) 4 mg 1X ONCE IVP 11/16/21 18:00 11/16/21 18:01 DC 11/16/21 17:58 Fentanyl Citrate (Fentanyl 2ml Vial) 50 mcg 1X ONCE IVP 11/16/21 18:30 11/16/21 18:31 DC 11/16/21 18:27 Fentanyl Citrate (Fentanyl 2ml Vial) 100 mcg STK-MED ONCE .ROUTE 11/16/21 18:24 11/16/21 18:24 DC Iohexol (Omnipaque 300 Mg/ml) 75 ml 1X ONCE IV 11/16/21 19:00 11/16/21 19:01 DC 11/16/21 19:27 Laboratory Tests Test 11/16/21 17:41 POC Urine HCG, Qualitative Hcg negative (Negative) Vital Signs: Vital Signs Date Time Temp Pulse Resp B/P (MAP) Pulse Ox O2 Delivery O2 Flow Rate FiO2 11/16/21 20:00 82 15 142/66 (91) 97 Room Air 11/16/21 18:27 26 99 Room Air 11/16/21 18:20 98.1 97 26 164/80 (108) 99 Room Air 98.1 11/16/21 17:45 98.1 108 26 165/74 (104) 99 Room Air 98.1 11/16/21 17:17 98.1 108 20 164/91 (115) 99 Room Air 98.1 Vital Signs Date Time Temp Pulse Resp B/P (MAP) Pulse Ox O2 Delivery O2 Flow Rate FiO2 11/16/21 17:17 98.1 108 20 164/91 (115) 99 Room Air 98.1 EKG: EKG: [] Radiology/Procedures: Radiology/Procedures: REASON: lower abdominal pain, worsen since 11/04/21, OMNI 300, 75 ML IV PROCEDURE: CT ABD PELV W/ IV CONTRST ONLY Exam Date: 11/16/2021 6:[address] ABDOMEN+PELVIS W Indication: Reason: lower abdominal pain, worsen since 11/04/21, OMNI 300, 75 ML IV / Spl. Instructions: / History: . TECHNIQUE: CT examination of the abdomen and pelvis was performed following the administration of nonionic intravenous contrast. One or more of the following dose reduction techniques were utilized: *Automated exposure control (AEC) *Adjustment of mA and/or kV according to patient size *Use of iterative reconstruction technique *CT scan done according to ALARA, or ALARA/IMAGE GENTLY COMPARISON: November 04, 2021 FINDINGS: The visualized lung bases are clear. Status post cholecystectomy. The liver, spleen, pancreas, adrenal glands and kidneys are normal. Urinary bladder is normal in appearance. There is a 2.3 cm right adnexal cyst. There is no bowel obstruction or inflammation. The appendix is normal. No significant atherosclerotic calcifications are seen. No lymphadenopathy or ascites is seen. Degenerative changes are seen in the spine. IMPRESSION: No evidence of acute intra-abdominal pathology. Electronically signed by: Anish Laura MD (11/16/2021 7:36 PM) [facility] REASON: R/O OVARIAN TORSION, LOWER ABDOMINAL PAIN PROCEDURE: PELVIS W/TV EXAM: ULTRASOUND PELVIS INDICATION: Reason: R/O OVARIAN TORSION, LOWER ABDOMINAL PAIN Last menstrual period was 11/04/2021. COMPARISON: 11/16/2021 CT abdomen and pelvis TECHNIQUE: Transvaginal sonography was performed. FINDINGS: Uterus measures 10.1 x 8.0 x 7.1 cm. Endometrium is 6 mm in thickness. Right ovary measures 3.9 x 3.1 x 2.2 cm. Left ovary measures 2.5 x 1.0 x 1.0 cm. Vascular flow identified in the ovaries bilaterally. Bilateral ovarian cysts largest on the right measuring up to 2.5 cm. No free fluid identified and pelvis. IMPRESSION: Normal sonographic appearance of the uterus and ovaries. No evidence for torsion. Electronically signed by: Ric Cote MD (11/16/2021 9:45 PM) [facility] [] Course & Med Decision Making: Course & Med Decision Making Pertinent Labs and Imaging studies reviewed. (See chart for details) 1944 reassessment of patient patient continues to have lower abdominal tenderness with palpation she says her pain is currently 6-7 out of 10. Did inform her that her CT scan did not show any acute process we will order a pelvic ultrasound to rule out ovarian torsion. Patient verbalized understanding of this and agreeable to the plan of care. 2144 reviewed radiological and laboratory results with patient did inform her we found no acute process on the ultrasound that is concerning, I informed her that she will need to follow-up with her primary care physician next week or her GEOLOGY TECHNICIAN next week for further management of her abdominal pain. I will write prescriptions for some pain medicine for the next couple days and Zofran for nausea, I did inform her that she continues to have nausea vomiting and diarrhea to do 24 hours of clear liquids and then advance as tolerated. Patient verbalized understanding of this and is agreeable to the plan of care. Dragon Disclaimer: Draghernandez Disclaimer: This electronic medical record was generated, in whole or in part, using a voice recognition dictation system. Departure Departure Impression: Primary Impression: Abdominal pain Qualified Codes: R10.84 - Generalized abdominal pain Disposition: HOME / SELF CARE / HOMELESS Condition: STABLE Referrals: NO PCP (PCP) Patient Instructions: Abdominal Pain, Clear Liquid Diet Additional Instructions: Zofran 1 tablet every 8 hours as needed for nausea, use with caution may cause constipation Hydrocodone take 1 to 2 tablets every 6 hours as needed for severe pain, use w ith caution may cause drowsiness and constipation [id number] Tylenol and/or ibuprofen as needed for mild to moderate pain Clear liquid diet for the next 24 hours and then advance as tolerated to a brat diet(bananas, rice, toast, applesauce, or potatoes), then advance as tolerated Follow-up with your GEOLOGY TECHNICIAN or your primary care physician or one of the clinics listed below for further management of your abdominal pain [facility] [address] [place] [address] [facility] [address] [place] [address] [facility] [address] [facility] [place] [address] [facility] [address] [place] [address] [facility] [address] [place] [address] [facility] [address] [place] [address] [facility] [address] [place] [address] [facility] [address] [place] [address] [facility] [address] [place] [address] [facility] [address] [place] [address] Scripts Hydrocodone Bit/Acetaminophen (HYDROCODONE-APAP 5-325 ) 1 Tab Tablet 1 TAB PO PRN Q6HRS PRN for PAIN, #14 TAB 0 Refills Prov: JOHN POWERS CELL ATTENDANT HELPER 11/16/21 Ondansetron (ONDANSETRON ODT) 4 Mg Tab.rapdis 1 TAB PO PRN Q6-8HRS, #16 TAB Prov: JOHN POWERS CELL ATTENDANT HELPER 11/16/21 JOHN POWERS CELL ATTENDANT HELPER Nov 16, 2021 17:48
[2021-11-16 17:50] LABS: BILIRUBIN,URINE NEGATIVE (NEG); CLARITY,URINE CLEAR; COLOR,URINE YELLOW; NITRITE,URINE NEGATIVE (NEG); PH,URINE 6.5 (<5.0-8.0); PROTEIN,URINE NEGATIVE (NEG-TRACE); UROBILINOGEN,URINE 0.2 mg/dL (0.2 mg/dL)
[2021-11-16 17:51] LABS: BACTERIA,URINE 0 /HPF (0-FEW); RBC,URINE 0 /HPF (0-2); WBC,URINE OCC /HPF (0-4)
[2021-11-16] MEDS ORDERED: IV NORMAL SALINE 1000ML BAG 1,000 ML IV ONE (18:00)
[2021-11-16] MEDS ORDERED: KETOROLAC 30 MG/ML VIAL. IVP ONE (18:00)
[2021-11-16] MEDS ORDERED: ONDANSETRON PF 4 MG/2 ML VIAL. IVP ONE (18:00)
[2021-11-16] MEDS ORDERED: fentaNYL PF VIAL 100 MCG/2 ML VIAL ONE (18:24)
[2021-11-16 18:27] LABS: BASO # 0.1 x10^3/uL (0.0-0.2); BASO % 1 % (0-3); EOS % 0 % (0-3); HEMOGLOBIN 12.7 g/dL (12.0-15.5); LYMPH # 3.2 x10^3/uL (1.0-4.8); LYMPH % 21 % (24-48); MEAN CORPUSCULAR HEMOGLOBIN 26 pg (25-35); MEAN CORPUSCULAR HGB CONC 33 g/dL (31-37); MEAN CORPUSCULAR VOLUME 79 fL (79-100); MONO # 0.8 x10^3/uL (0.0-1.1); MONO % 5 % (0-9); NEUT % 73 % (31-73); PLATELET COUNT 402 x10^3/uL (140-400); RED BLOOD COUNT 4.96 x10^6/uL (3.50-5.40); RED CELL DISTRIBUTION WIDTH 16.5 % (11.5-14.5); WHITE BLOOD COUNT 15.1 x10^3/uL (4.0-11.0)
[2021-11-16] MEDS ORDERED: fentaNYL PF VIAL 100 MCG/2 ML VIAL IVP ONE (18:30)
[2021-11-16 18:38] LABS: CALCIUM 9.2 mg/dL (8.5-10.1); CREATININE 0.7 mg/dL (0.6-1.0); GFR 94.2; POTASSIUM 3.5 mmol/L (3.5-5.1)
[2021-11-16 18:43] LABS: ALBUMIN 4.1 g/dL (3.4-5.0); ALBUMIN/GLOBULIN RATIO 0.9 (1.0-1.7); TOTAL BILIRUBIN 0.5 mg/dL (0.2-1.0); TOTAL PROTEIN 8.6 g/dL (6.4-8.2)
[2021-11-16] MEDS ORDERED: IOHEXOL 300 MG/ML 100ML VIAL. IV ONE (19:00)
--- NOTE | 2021-11-16 19:38 | RAD ---
Exam Date: 11/16/2021 6:[address] ABDOMEN+PELVIS W Indication: Reason: lower abdominal pain, worsen since 11/04/21, OMNI 300, 75 ML IV / Spl. Instructio ns: / History: . TECHNIQUE: CT examination of the abdomen and pelvis was performed following the administration of no nionic intravenous contrast. One or more of the following dose reduction techniques were utilized: *Automated exposure control (AEC) *Adjustment of mA and/or kV according to patient size *Use of iterative reconstruction technique *CT scan done according to ALARA, or ALARA/IMAGE GENTLY COMPARISON: November 04, 2021 FINDINGS: The visualized lung bases are clear. Status post cholecystectomy. The liver, spleen, pancreas, adrenal glands and kidneys are normal. Urinary bladder is normal in appearance. There is a 2.3 cm right adnexal cyst. There is no bowel obstruction or inflammation. The appendix is normal. No significant atherosclerotic calcifications are seen. No lymphadenopathy or ascites is seen. Degenerative changes are seen in the spine. IMPRESSION: No evidence of acute intra-abdominal pathology. Electronically signed by: Anish Laura MD (11/16/2021 7:36 PM) [facility]
--- NOTE | 2021-11-16 21:48 | RAD ---
EXAM: ULTRASOUND PELVIS INDICATION: Reason: R/O OVARIAN TORSION, LOWER ABDOMINAL PAIN Last menstrual period was 11/04/2021. COMPARISON: 11/16/2021 CT abdomen and pelvis TECHNIQUE: Transvaginal sonography was performed. FINDINGS: Uterus measures 10.1 x 8.0 x 7.1 cm. Endometrium is 6 mm in thickness. Right ovary measures 3.9 x 3.1 x 2.2 cm. Left ovary measures 2.5 x 1.0 x 1.0 cm. Vascular flow identified in the ovaries bilaterally. Bilateral ovarian cysts largest on the right lorelei suring up to 2.5 cm. No free fluid identified and pelvis. IMPRESSION: Normal sonographic appearance of the uterus and ovaries. No evidence for torsion. Electronically signed by: Ric Cote MD (11/16/2021 9:45 PM) [facility]
[2021-11-16] MEDS ORDERED: ONDA4TAB12 PO (22:02)
[2021-11-16] MEDS ORDERED: HYDR-2761 PO (22:02)
[2021-11-16 22:30] VITALS: BP 161/79
== END 2021-11-16 23:07 | disposition home or self-care (01) ==
LOC: ER 16:47
DX: R10.84 Generalized abdominal pain (principal); R11.2 Nausea with vomiting, unspecified; R19.7 Diarrhea, unspecified; Z90.49 Acquired absence of other specified parts of digestive tract
CPT/HCPCS: 36415; 74177; 76830; 76856; 80053; 81001; 81025; 83690; 85025; 96361; 96374; 96375; 99285; J1885; J2405; J3010; J7030; Q9967

== ENCOUNTER 2022-01-21 18:09 | Emergency (ER) | payer SELFPAY ==
[~2022-01-21] VITALS: Ht 175.3 cm; Wt 120.0 kg
[~2022-01-21 18:09] MED LIST changes: +ONDA4TAB12 PO
[2022-01-21] MEDS ORDERED: MORPHINE SULFATE 4 MG/ML INJ. IVP ONE ×2 (18:30→19:30)
[2022-01-21] MEDS ORDERED: IV NORMAL SALINE 1000ML BAG 1,000 ML IV ONE (18:30)
[2022-01-21] MEDS ORDERED: ONDANSETRON PF 4 MG/2 ML VIAL. IVP ONE (18:30)
[2022-01-21 18:40] LABS: BASO # 0.1 x10^3/uL (0.0-0.2); BASO % 1 % (0-3); EOS # 0.1 x10^3/uL (0.0-0.7); EOS % 1 % (0-3); HEMATOCRIT 35.4 % (36.0-47.0); HEMOGLOBIN 12.2 g/dL (12.0-15.5); LYMPH # 2.5 x10^3/uL (1.0-4.8); LYMPH % 21 % (24-48); MEAN CORPUSCULAR HEMOGLOBIN 27 pg (25-35); MEAN CORPUSCULAR HGB CONC 34 g/dL (31-37); MEAN CORPUSCULAR VOLUME 79 fL (79-100); MONO # 0.8 x10^3/uL (0.0-1.1); MONO % 7 % (0-9); NEUT # 8.5 x10^3/uL (1.8-7.7); NEUT % 71 % (31-73); PLATELET COUNT 381 x10^3/uL (140-400); RED BLOOD COUNT 4.51 x10^6/uL (3.50-5.40); RED CELL DISTRIBUTION WIDTH 16.5 % (11.5-14.5); WHITE BLOOD COUNT 11.9 x10^3/uL (4.0-11.0)
--- NOTE | 2022-01-21 18:49 | PHYS DOC ---
Past Medical History Past Medical History: Diverticulosis, Uterine Fibroids Past Surgical History: No Surgical History Smoking Status: Never Smoker Alcohol Use: None General Adult EDM: Chief Complaint: ABDOMINAL PAIN HPI: HPI: Patient is a 36 year old female with history of uterine fibroids, diverticulitis, presenting to the ED today complaining of 10 out of 10 left lower quadrant abdominal pain, symptoms of been going on for 4 days. Patient describes the pain as sharp and constant. Denies anything specifically exacerbating or relieving the pain. She states she had an episode of vomiting yesterday due to the pain. Patient denies any diarrhea. She also reports chronic pelvic pain, she states she has fibroids and is supposed to have her uterus taken out. She states she is from [place]. She states she has been in the ED before for this pain, last visit October 2021 and was asked to follow up with her doctor. Review of Systems: Review of Systems: Constitutional: Denies fever or chills. [] Eyes: Denies change in visual acuity. [] HENT: Denies nasal congestion or sore throat. [] Respiratory: Denies cough or shortness of breath. [] Cardiovascular: Denies chest pain or edema. [] GI: Reports left lower quadrant abdominal pain, vomiting x1, denies bloody stools or diarrhea. [] : Denies dysuria. [] Musculoskeletal: Denies back pain or joint pain. [] Integument: Denies rash. [] Neurologic: Denies headache, focal weakness or sensory changes. [] Psychiatric: Denies depression or anxiety. [] Heart Score: C/O Chest Pain: N/A Risk Factors: Risk Factors: DM, Current or recent (<one month) smoker, HTN, HLP, family history of CAD, obesity. Risk Scores: Score 0 - 3: 2.5% MACE over next 6 weeks - Discharge Home Score 4 - 6: 20.3% MACE over next 6 weeks - Admit for Clinical Observation Score 7 - 10: 72.7% MACE over next 6 weeks - Early Invasive Strategies Current Medications: Current Medications Medications (Trade) Dose Ordered Sig/[place] Start Time Stop Time Status Last Admin Dose Admin Morphine Sulfate (Morphine Sulfate) 4 mg 1X ONCE 01/21/22 18:30 01/21/22 18:31 DC 01/21/22 18:38 4 MG Ondansetron HCl (Zofran) 4 mg 1X ONCE 01/21/22 18:30 01/21/22 18:31 DC 01/21/22 18:38 4 MG Sodium Chloride 1,000 ml @ 1,000 mls/hr 1X ONCE 01/21/22 18:30 01/21/22 19:29 01/21/22 18:37 1,000 MLS/HR Allergies: Allergies: Allergies Coded Allergies Type Severity Reaction Last Updated Verified No Known Drug Allergies 05/30/21 No Physical Exam: PE: Constitutional: Well developed, well nourished, no acute distress, non-toxic appearance. [] HENT: Normocephalic, atraumatic, bilateral external ears normal, oropharynx moist, no oral exudates, nose normal. [] Eyes: PERRLA, EOMI, conjunctiva normal, no discharge. [] Neck: Normal range of motion, no tenderness, supple, no stridor. [] Cardiovascular:Heart rate regular rhythm, no murmur [] Lungs & Thorax: Bilateral breath sounds clear to auscultation [] Abdomen: Bowel sounds normal, soft, mild tenderness on palpation of the left lower quadrant, no right lower quadrant, right upper quadrant tenderness, no masses, no pulsatile masses. [] Skin: Warm, dry, no erythema, no rash. [] Back: No tenderness, no CVA tenderness. [] Extremities: No tenderness, no cyanosis, no clubbing, ROM intact, no edema. [] Neurologic: Alert and oriented X 3, normal motor function, normal sensory function, no focal deficits noted. [] Psychologic: Tearful Current Patient Data: Labs: Laboratory Tests Test 01/21/22 18:35 White Blood Count 11.9 x10^3/uL (4.0-11.0) H Red Blood Count 4.51 x10^6/uL (3.50-5.40) Hemoglobin 12.2 g/dL (12.0-15.5) Hematocrit 35.4 % (36.0-47.0) L Mean Corpuscular Volume 79 fL (79-100) Mean Corpuscular Hemoglobin 27 pg (25-35) Mean Corpuscular Hemoglobin Concent 34 g/dL (31-37) Red Cell Distribution Width 16.5 % (11.5-14.5) H Platelet Count 381 x10^3/uL (140-400) Neutrophils (%) (Auto) 71 % (31-73) Lymphocytes (%) (Auto) 21 % (24-48) L Monocytes (%) (Auto) 7 % (0-9) Eosinophils (%) (Auto) 1 % (0-3) Basophils (%) (Auto) 1 % (0-3) Neutrophils # (Auto) 8.5 x10^3/uL (1.8-7.7) H Lymphocytes # (Auto) 2.5 x10^3/uL (1.0-4.8) Monocytes # (Auto) 0.8 x10^3/uL (0.0-1.1) Eosinophils # (Auto) 0.1 x10^3/uL (0.0-0.7) Basophils # (Auto) 0.1 x10^3/uL (0.0-0.2) Laboratory Tests 01/21/22 18:35 Vital Signs: Vital Signs Date Time Temp Pulse Resp B/P (MAP) Pulse Ox O2 Delivery O2 Flow Rate FiO2 01/21/22 18:38 20 Room Air 01/21/22 18:22 97.0 115 177/82 (113) 100 97.0 EKG: EKG: [] Radiology/Procedures: Radiology/Procedures: []PROCEDURE: CT ABD PELV W/ IV CONTRST ONLY Exam: CT of abdomen and pelvis with contrast INDICATION: Abdominal pain, Back pain TECHNIQUE: Sequential axial images through the abdomen and pelvis obtained following the administration of 75 mL of Isovue-370 IV contrast. Sagittal and co monse reformatted images were reconstructed from the axial data and reviewed. Exposure: One or more of the following in the visualized dose reduction techniques were utilized for this examination: 1. Automated exposure control 2. Adjustment of the MA and/or KV according to patient size 3. Use of iterative of reconstructive technique Comparisons: 11/16/2021 FINDINGS: Heart size is normal. No pericardial effusion. Visualized lung bases are clear. No pleural effusion. Liver, spleen, pancreas and adrenals are unremarkable. Gallbladder is absent. No perinephric inflammation or hydronephrosis. No renal or ureteral calculi are identified. Bladder is partially distended and appears thin-walled. Uterus is mildly enlarged. No abnormal adnexal mass. Large and small bowel are unremarkable. No free intra-abdominal air or fluid. No obstruction. Abdominal aorta has normal course and caliber. Abdominal vasculature is patent. No enlarged intra-abdominal lymph nodes are identified. No suspicious osseous lesions or acute fractures. IMPRESSION: No acute process identified within the abdomen and pelvis Electronically signed by: Ric Gan MD (01/21/2022 7:52 PM) [facility] DICTATED and SIGNED BY: RIC GAN MD DATE: 01/21/221945 Course & Med Decision Making: Course & Med Decision Making Pertinent Labs and Imaging studies reviewed. (See chart for details) This a 36-year-old female patient presented to the ED today with left lower quadrant abdominal pain, symptoms began 4 days ago. Negative urine hcg, UA negative for infection. CBC with a WBC of 11.9, CMP with potassium of 2.9, patient was given oral potassium replacement. CT of the abdomen and pelvis is negative. She was given IV fluids and morphine for pain. Discharged to home. Provided a list of primary care doctors, GI doctor and [employer] for follow-up Lawrence Disclaimer: Lawrence Disclaimer: This electronic medical record was generated, in whole or in part, using a voice recognition dictation system. Departure Departure Impression: Primary Impression: Abdominal pain Qualified Codes: R10.12 - Left upper quadrant pain Additional Impression: Hypokalemia Disposition: 01 HOME / SELF CARE / HOMELESS Condition: STABLE Referrals: NO PCP (PCP) SHILPI PHAM MD follow up in one week VENKAT BRUMFIELD MD follow up in one week Patient Instructions: Abdominal Pain (Nonspecific) Additional Instructions: You were evaluated in the emergency room for abdominal pain, your CT of the abdomen and pelvis is negative for any acute findings. We encourage you to establish care with the provided doctors and follow-up Scripts Dicyclomine Hcl (DICYCLOMINE HCL) 20 Mg Tablet 1 TAB PO TID, #20 TAB 1 Refill Prov: CHARLETTE HENDRICKS INTERPRETER TRANSLATOR 01/21/22 Ondansetron (ONDANSETRON ODT) 4 Mg Tab.rapdis 1 TAB PO PRN Q6-8HRS, #16 TAB Prov: CHARLETTE HENDRICKS INTERPRETER TRANSLATOR 01/21/22 CHARLETTE HENDRICKS INTERPRETER TRANSLATOR January 21, 2022 18:49
[2022-01-21] MEDS ORDERED: IOHEXOL 300 MG/ML 100ML VIAL. IV ONE (19:00)
[2022-01-21] MEDS ORDERED: CONTRAST GIVEN. MC PRN (19:00)
[2022-01-21 19:02] LABS: ALBUMIN 3.6 g/dL (3.4-5.0); ALBUMIN/GLOBULIN RATIO 0.8 (1.0-1.7); CREATININE 0.7 mg/dL (0.6-1.0); GFR 94.2; TOTAL BILIRUBIN 0.5 mg/dL (0.2-1.0); TOTAL PROTEIN 8.2 g/dL (6.4-8.2)
[2022-01-21 19:13] LABS: POTASSIUM 2.9 mmol/L (3.5-5.1)
[2022-01-21 19:16] LABS: BACTERIA,URINE 0 /HPF (0-FEW); WBC,URINE RARE /HPF (0-4)
[2022-01-21] MEDS ORDERED: POTASSIUM CHLORIDE 20 MEQ TABLET.ER. PO ONE (19:30)
--- NOTE | 2022-01-21 19:54 | RAD ---
Exam: CT of abdomen and pelvis with contrast INDICATION: Abdominal pain, Back pain TECHNIQUE: Sequential axial images through the abdomen and pelvis obtained following the administrati on of 75 mL of Isovue-370 IV contrast. Sagittal and coronal reformatted images were reconstructed fro m the axial data and reviewed. Exposure: One or more of the following in the visualized dose reduction techniques were utilized for this examination: 1. Automated exposure control 2. Adjustment of the MA and/or KV according to patient size 3. Use of iterative of reconstructive technique Comparisons: 11/16/2021 FINDINGS: Heart size is normal. No pericardial effusion. Visualized lung bases are clear. No pleural effusion. Liver, spleen, pancreas and adrenals are unremarkable. Gallbladder is absent. No perinephric inflammation or hydronephrosis. No renal or ureteral calculi are identified. Bladder is partially distended and appears thin-walled. Uterus is mildly enlarged. No abnormal adnexa l mass. Large and small bowel are unremarkable. No free intra-abdominal air or fluid. No obstruction. Abdominal aorta has normal course and caliber. Abdominal vasculature is patent. No enlarged intra-abdominal lymph nodes are identified. No suspicious osseous lesions or acute fractures. IMPRESSION: No acute process identified within the abdomen and pelvis Electronically signed by: Ric Cote MD (01/21/2022 7:52 PM) [facility]
[2022-01-21] MEDS ORDERED: DICY20TA PO (20:08)
[2022-01-21] MEDS ORDERED: ONDA4TAB12 PO (20:08)
[2022-01-21 20:21] VITALS: BP 146/78
== END 2022-01-21 20:22 | disposition home or self-care (01) ==
LOC: ER 18:09
DX: R10.32 Left lower quadrant pain (principal); R10.12 Left upper quadrant pain; E87.6 Hypokalemia
CPT/HCPCS: 36415; 74177; 80053; 81001; 81025; 83690; 85025; 96361; 96374; 96375; 96376; 99285; J2270; J2405; J7030; Q9967